=== PATIENT | female | born 1995 | race Caucasian/White ===

== ENCOUNTER → 2019-12-16 11:00 | Outpatient (BNVA) | payer OTHER, SELFPAY | PROVIDERS: Referring Provider Family Medicine; Visit Provider Family Medicine | DX: R50.9 Fever, unspecified (principal); J01.00 Acute maxillary sinusitis, unspecified; J02.9 Acute pharyngitis, unspecified; R68.89 Other general symptoms and signs; Z71.89 Other specified counseling | CPT/HCPCS: 87081; 87804; 87880 ==

== ENCOUNTER 2020-06-23 07:45 | Outpatient (CLI) | payer OTHER, MEDICAID, SELFPAY ==
--- NOTE | 2020-06-23 07:52 | US_ITS ---
WS: [id number] EARLY OBSTETRICAL ULTRASOUND (<14 WEEKS). HISTORY: SUPERVISION NORMAL COMPARISON: None available. Single intrauterine gestational sac is identified. Cardiac activity at 141 BPM. [place]-rump length aaliyah sures 0.9 cm which corresponds to a gestation of 6w6d. Normal-appearing yolk sac and amnion demonstra zach. Smallsubchorionic hemorrhage.Subchorionic hemorrhage measures 1.5 x 0.8 cm along the LEFT latera l gestational sac. No free fluid. Normal size ovaries with no mass. US/US OB <=14 wk fetus w transvag IMPRESSION: 1. Single intrauterine gestation of 6 weeks 6 days with an EDC of 02/10/2021. 2. Small subchorionic hemorrhage.
== END 2020-06-23 07:46 | disposition home or self-care (01) ==
LOC: RAD 07:46
PROVIDERS: Visit Provider Family Medicine
DX: Z3A.01 Less than 8 weeks gestation of pregnancy (principal); O46.91 Antepartum hemorrhage, unspecified, first trimester
CPT/HCPCS: 76801; 76817

== ENCOUNTER 2020-09-23 08:51 | Outpatient (CLI) | payer OTHER, MEDICAID, SELFPAY ==
--- NOTE | 2020-09-23 08:45 | US_ITS ---
WS: [id number] ULTRASOUND OB COMPLETE TECHNIQUE: Complete ultrasound. CLINICAL INFORMATION: ANATOMY/SUPERVISION NORMAL ,MULTIPAROUS COMPARISON: June 23, 2020 FINDINGS: Cervix measures 4.0 cm Single interuterine gestation is identified with cephalic presentation. Placenta is posterior. Placenta grade 0. Normal amniotic fluid volume. cardiac activity: 147 BPM. AGA: 20w1d CHRISTINA by ultrasound: 02/09/2021 Estimated weight: 316 g BDP: 4.7 cm = 20w2d HC: 18.0 cm = 20w3d AC: 14.2 cm = 19w4d FEMUR LENGTH: 3.2 cm = 20w0d Anatomic survey: Anatomic survey is normal. Normal stomach. Kidneys and bladder are normal. Normal 3 vessel cord. Norm al 3 vessel cord insertion. Normal 4 chamber heart. Normal spine. Intracranial contents are normal. N ormal posterior fossa and cisterna magna. US/US OB >= 14 weeks fetus [id number] IMPRESSION: 1. Single intrauterine with visualized cardiac activity. AGA 20w1d w ith CHRISTINA 02/09/2021. 2. Placenta is posterior No evidence of abruption or previa. 3. anatomic survey is normal. 4. Normal amniotic fluid volume.
== END 2020-09-23 08:52 | disposition home or self-care (01) ==
LOC: RAD 08:57
PROVIDERS: PCP Family Medicine; Visit Provider Family Medicine
DX: Z34.82 Encounter for supervision of other normal pregnancy, second trimester; Z3A.20 20 weeks gestation of pregnancy
CPT/HCPCS: 76805

== ENCOUNTER 2020-12-27 13:59 | Outpatient (CLI) | payer OTHER, BC, SELFPAY ==
--- NOTE | 2020-12-27 14:07 | USCV_ITS ---
Gricel Hernandez Age: 25 Gender: F : 1995 Exam Date: 12/27/2020 14:30 Ordering Phys: Vikram Hutchinson MD Technologist: Tavon Moreira Exam Location: [facility] [place]_ Indication: CALF PAIN HISTORY: Lower extremity pain. PROCEDURES: Venous duplex imaging was performed in bilateral lower extremities. The following venous structures were evaluated: common femoral vein, profunda vein, proximal portion of the greater saphenous vein, superficial femoral vein, and the popliteal vein. In addition, the posterior tibial and peroneal trunk were evaluated. FINDINGS: Normal 2-D Doppler and augmentation and compressibility throughout the lower extremity venous structures. Additional imaging through the proximal calf veins also reveals no thrombus. Limited evaluation of the greater saphenous vein is patent with no thrombus.. CONCLUSIONS No evidence of right lower extremity DVT. No evidence of left lower extremity DVT. Herminio Keenan MD (Electronically Signed) Final Date: 27 December 2020 14:42 S
== END 2020-12-27 14:00 | disposition home or self-care (01) ==
LOC: RAD 14:05
PROVIDERS: PCP Family Medicine; Visit Provider Family Medicine
DX: M79.661 Pain in right lower leg (principal); M79.662 Pain in left lower leg
CPT/HCPCS: 93970

== ENCOUNTER 2021-01-24 13:37 | Outpatient (CLI) | payer OTHER, BC, SELFPAY ==
--- NOTE | 2021-01-24 13:45 | US_ITS ---
WS: [id number] ULTRASOUND OB LIMITED TECHNIQUE: Limited ultrasound examination of the fetus. CLINICAL INFORMATION: SMALL FOR GESTATIONAL AGE COMPARISON: Ultrasound September 23, 2020 FINDINGS: Cervix measures 3.6 cm Single interuterine gestation. presentation is cephalic Placental location is posterior. Placenta grade: 1 heart rate 153 BPM. Normal MARTHA Normal profile. 7 lbs. 4 oz. (78th percentile) Gestational age 37 weeks 5 days. Estimated delivery February 09, 2021 Biophysical profile 8 out of 8. breathin movement: 2 tone: 2 Amniotic fluid: 2 US/US OB F/U w BPP wo NST IMPRESSION: Normal biophysical profile 8 out of 8
== END 2021-01-24 13:38 | disposition home or self-care (01) ==
LOC: RAD 13:41
PROVIDERS: PCP Family Medicine; Visit Provider Family Medicine
DX: Z34.80 Encounter for supervision of other normal pregnancy, unspecified trimester (principal); Z36.4 Encounter for antenatal screening for fetal growth retardation; Z3A.37 37 weeks gestation of pregnancy
CPT/HCPCS: 76816; 76819

== ENCOUNTER 2021-01-27 23:55 | Outpatient (CLI) | payer OTHER, BC, SELFPAY ==
[2021-01-27 23:55] VITALS: RESP 16; BMI 27.8
[2021-01-28 00:07] VITALS: BP 138/87; PULSE 113
[2021-01-28 00:21] VITALS: TEMP 36.8
[2021-01-28 00:36] VITALS: BP 123/71; PULSE 92
[2021-01-28 00:38] VITALS: BP 123/71; PULSE 92; RESP 16; TEMP 36.8
[2021-01-28 00:46] LABS: Nitrazine Paper, PH Negative
== END 2021-01-28 00:50 | disposition home or self-care (01) ==
LOC: OPOB 23:56 → OBGYN 23:56
PROVIDERS: PCP Family Medicine; Visit Provider Family Medicine
DX: O26.899 Other specified pregnancy related conditions, unspecified trimester (principal); Z3A.00 Weeks of gestation of pregnancy not specified; N89.8 Other specified noninflammatory disorders of vagina
CPT/HCPCS: 59025; 83986; 99211

== ENCOUNTER 2021-01-29 21:15 | Outpatient (CLI) | payer OTHER, BC, SELFPAY ==
[2021-01-29 21:21] VITALS: RESP 18
[2021-01-29 21:22] VITALS: BP 120/74; PULSE 96; TEMP 36.2
[2021-01-29 21:23] VITALS: BMI 27.4
[2021-01-29 21:57] LABS: Nitrazine Paper, PH Negative
== END 2021-01-29 21:50 | disposition home or self-care (01) ==
LOC: OPOB 21:15 → OBGYN 21:48
PROVIDERS: PCP Family Medicine; Visit Provider Family Medicine
DX: O26.899 Other specified pregnancy related conditions, unspecified trimester (principal); Z3A.00 Weeks of gestation of pregnancy not specified; N89.8 Other specified noninflammatory disorders of vagina
CPT/HCPCS: 83986; 99211

== ENCOUNTER 2021-02-07 06:00 | Inpatient (IN) | payer OTHER, BC, MEDICAID, SELFPAY ==
[2021-02-07] VITALS (22 sets, daily range): BP systolic 111–136; BP diastolic 67–88; PULSE 62–97; RESP 15–17; TEMP 36.1–36.4; BMI 27.4
[2021-02-07 06:39] LABS: Basophils % 0.4 %; Eosinophils # 0.4 10^3/uL (0.0-0.8); Eosinophils % 3.6 %; Hematocrit 36.6 % (37.0-47.0); Hemoglobin 11.7 g/dL (11.5-15.3); Lymphocytes # 2.9 10^3/uL (0.8-4.8); Lymphocytes % 30.2 %; Mean Corpuscular Hemoglobin 27.2 pg (28.0-34.0); Mean Corpuscular Volume 85.1 fL (81-99); Mean Platelet Volume 11.1 fL (7.4-10.4); Monocytes # 0.7 10^3/uL (0.2-0.9); Neutrophils # 5.59 10^3/uL (1.8-7.7); Nucleated Red Blood Cells % 0 %; Platelet Count 193 10^3/cmm (130-400); Red Cell Distribution Width 13.7 % (12.1-15.1); White Blood Count 9.7 10^3/uL (4.0-10.0)
[2021-02-07] MEDS: dextrose 5%-lactated ringers 1,000 ML 125 ML IV (07:14)
[2021-02-07] MEDS: oxytocin 30 UNIT/500 ML BAG 4 UNIT IV (07:15)
--- NOTE | 2021-02-07 08:08 | P.HP_ITS ---
Providers/Chief Complaint Admitting Physician: Vikram Hutchinson MD Primary Care Provider: Vikram Hutchinson MD Chief Complaint: induction of labor History of Present Illness Gricel Hernandez is a 25 year old at 39.3 weeks gestation by 6-week ultrasound inconsistent with LMP. Her is complicated by positive anti-M antibodies with titers of less than 1-1, first trimester subchorionic hemorrhage. The patient presents for an elective induction of labor. The patient is feeling well today. She denies any leakage of fluid, vaginal bleeding, chest pains, shortness of breath, fever, nausea, vomiting, diarrhea, constipation, dysuria. She feels well overall. Medications/Allergies Home Medications Medication Instructions Recorded Confirmed Last Taken Type + DHA 1 tab PO DAILY 01/28/21 02/07/21 02/06/21 17:00 History ferrous sulfate 325 mg PO DAILY 15 Days #30 tab 02/08/21 Unknown Rx hydrocodone-acetaminophen 1 tab PO Q6H PRN #10 tab 02/08/21 Unknown Rx ibuprofen 800 mg PO TID #30 tab 02/08/21 Unknown Rx Allergies Allergy/AdvReac Type Severity Reaction Status Date / Time No Known Allergies Allergy Verified 02/07/21 15:04 PFSH Acute PFSH: Family History (Updated 02/18/21 @ 21:49 by Vikram Hutchinson MD) Mother Thyroid disorder Social History Smoking and tobacco status: never smoked Alcohol intake: never Female Reproductive History: : 2 Vitals/I&O/Wt Last Vital Signs Pulse 88 02/07/21 06:12 Resp 15 02/07/21 06:28 BP 125/85 02/07/21 06:12 Weight last 48 hrs Weight 186 lb Physical Exam Narrative: EXAM NARRATIVE: General: Alert and oriented x3 Eyes: Pupils equal round and reactive to light and accommodation Mouth: Mucous membranes moist, pharynx non-erythematous Cardiac: Regular rate and rhythm without murmurs Lungs: Clear to auscultation bilaterally without wheezes, crackles or rhonchi Abdomen: Soft, non-tender, fundus consistent with gestational age Extremities: Trace edema in the bilateral lower extremities Data : 02/07/21 22:00 A&P Assessment and plan (1) Intrauterine : Status: Resolved Additional A&P Information The patient is doing well at this time. We will continue with induction of labor starting with IV Pitocin as the patient is 2 cm dilated and 70% effaced upon presentation. There was an initial late deceleration that resolved on its own. Currently heart tones are in the mid 140s with moderate variability and good accelerations with a category 1 tracing. The patient's contractions are currently not graphing. She does not seem to be uncomfortable with them yet. The patient is GBS negative. She is Covid negative. Proceed with routine induction at this time. All questions were answered. The patient and her significant other are in agreement with the current plan of care. Attestations Medical Necessity Statement*: The patient will be here for greater than 2 midnights due to routine intrapartum and management of labor and delivery. Coding Level of Care Code Acute Vacuum Metalizer Operator for Nia Whitfield Diagnoses Intrauterine Z34.90
[2021-02-07] MEDS: lactated ringers 1,000 ML 999 ML IV (08:44)
[2021-02-07] MEDS: butorphanol 2 mg/mL SDV 1 mL 1 MG IVP (08:44)
--- NOTE | 2021-02-07 09:36 | P.PCNOB_ITS ---
Delivery Note: Date of delivery: February 07, 2021 Pre-delivery diagnoses: 1. Intrauterine status post spontaneous vaginal delivery at 39.3 weeks gestation 2. Positive anti-M antibodies 3. First trimester subchorionic hemorrhage Post-delivery diagnoses: 1. Intrauterine at 39.3 weeks gestation 2. Positive anti-M antibodies 3. First trimester subchorionic hemorrhage 4. Delivery of healthy female weighing 7 pounds 4 ounces with Apgars of 9 and 10 Procedure: Spontaneous vaginal delivery Op report anesthesia: Other (IV Stadol) Delivering Physician: Vikram Hutchinson MD Estimated blood loss (mL): 100 Pre-Delivery Course: The patient presented to labor and delivery for a planned elective induction of labor. The patient was already dilated to 2 cm upon admission. She was started on IV Pitocin and began sameer well. The patient made rapid change and was complete by 9:06 AM on 02/07/2021. Delivery: Patient began pushing at 9:06 AM on 02/07/2021. She pushed well and the infant delivered in the OA position at 9:18 AM on 02/07/2021. There was no nuchal cord. The left shoulder was anterior shoulder and it delivered with ease. The rest the delivered without complication. The mouth and nose were bulb suctioned by myself and the was placed on the mother's chest where the nurses were waiting to care for her. The cord was clamped by myself and cut by the infant's father. Cord blood was obtained. The cord was then drained of blood and uterine massage was done. The placenta delivered without complication and was noted to be intact with a central umbilical insertion site. The cervix was inspected and no lacerations were noted. The vaginal wall was inspected and no lacerations were noted. Currently both the and mother are doing very well. A&P Assessment and plan (1) Intrauterine : Status: Resolved Coding Level of Care Code Acute Food Sanitarian for Chg Fwd Diagnoses Intrauterine Z34.90
[2021-02-07] MEDS: acetaminophen 325 mg Tablet 650 MG PO (13:29)
[2021-02-07] MEDS: ibuprofen 800 mg tablet PO ×2 (15:07→20:52)
[2021-02-07] MEDS: benzocaine-menthol 78 gm Canister 1 SPRAY TOPICAL (17:20)
[2021-02-07] MEDS: docusate sodium 100 mg Capsule PO (17:20)
[2021-02-07] MEDS: lanolin oint 7 gm 1 APPLIC TOPICAL (17:20)
[2021-02-08] MEDS: HYDROcodone-acetaminophen 5-325 mg Tablet PO (01:21)
[2021-02-08 01:38] LABS: Hematocrit 38.1 % (37.0-47.0); Hemoglobin 11.8 g/dL (11.5-15.3); Mean Corpuscular Hemoglobin 26.3 pg (28.0-34.0); Mean Corpuscular Volume 84.9 fL (81-99); Mean Platelet Volume 11.9 fL (7.4-10.4); Platelet Count 200 10^3/cmm (130-400); Red Blood Count 4.49 10^6/uL (4.1-5.3); Red Cell Distribution Width 13.7 % (12.1-15.1)
[2021-02-08 03:50] VITALS: BP 100/62; PULSE 78
--- NOTE | 2021-02-08 08:40 | P.DS_ITS ---
Discharge Providers Date of Admission: 02/07/21 06:00 Date of Discharge: February 08, 2021 Attending Provider at Admission: Vikram Hutchinson MD Attending Provider at Discharge: Vikram Hutchinson MD Primary Care Provider: Vikram Hutchinson MD Diagnoses at Discharge Discharge Diagnosis (1) Intrauterine : Status: Resolved Reason for Visit Reason for Visit: induction of labor Hospital Course Hospital Course The patient presented to labor and delivery for a planned elective induction of labor. The patient was already dilated to 2 cm upon admission. She was started on IV Pitocin and began sameer well. The patient made rapid change and was complete by 9:06 AM on 02/07/2021. Delivery: The patient began pushing at 9:06 AM on 02/07/2021. She pushed well and the infant delivered in the OA position at 9:18 AM on 02/07/2021. There was no nuchal cord. The left shoulder was anterior shoulder and it delivered with ease. The rest the infant delivered without complication. The mouth and nose were bulb suctioned by myself and the infant was placed on the mother's chest where the nurses were waiting to care for her. The cord was clamped by myself and cut by the 's father. Cord blood was obtained. The cord was then drained of blood and uterine massage was done. The placenta delivered without complication and was noted to be intact with a central umbilical insertion site. The cervix was inspected and no lacerations were noted. The vaginal wall was inspected and no lacerations were noted. Currently both the and mother are doing very well. : The patient is doing very well without complications. Her bleeding is decreasing well. She is ambulating, voiding, passing gas and tolerating food by mouth. Her pain is well controlled. Routine discharge instructions were discussed. All questions were answered. The patient is in agreement with discharge home at this time. Physical Exam Narrative: EXAM NARRATIVE: General: Alert and oriented x3 Cardiac: Regular rate and rhythm without murmurs Lungs: Clear to auscultation bilaterally without wheezes, crackles or rhonchi Abdomen: Soft, non-tender, fundus is firm and midline and 2 cm below the umbilicus. Extremities: Trace edema in the bilateral lower extremities Discharge Data Data Completed and Pending: Labs from last 24 hours 02/07/21 22:00 WBC 13.0 H RBC 4.49 Hgb 11.8 Hct 38.1 MCV 84.9 MCH 26.3 L MCHC 31.0 RDW 13.7 Plt Count 200 MPV 11.9 H Vitals: Last Vital Signs Temp 97.5 F L 02/07/21 19:36 Pulse 78 02/08/21 03:50 Resp 16 02/07/21 19:36 BP 100/62 02/08/21 03:50 Discharge Plan Discharge Patient Disposition: Home Condition: Good Prescriptions: New ibuprofen 800 mg Tablet 800 mg PO TID Qty: 30 RF: 0 hydrocodone-acetaminophen 5-325 mg Tablet 1 tab PO Q6H PRN (Reason: Moderate To Severe Pain) Qty: 10 RF: 0 ferrous sulfate 325 mg (65 mg iron) tablet 325 mg PO DAILY 15 Days Qty: 30 RF: 0 Continued + DHA tablet 1 tab PO DAILY RF: 0 Discharge Orders: Discharge Order (Routine); Ordered 02/08/21 Ordered By: Vikram Hutchinson Referrals: Vikram Hutchinson MD [Primary Care Provider] - 03/22/21 10:00 am (Your 6 week post appointment is scheduled with Dr. Hutchinson for 03/22/21 at 10:00) Discharge Diet: Advance as tolerated Discharge Activity: Resume usual activity Patient Instructions: Vitamins (By mouth), Pre-eclampsia and Eclampsia (DC), Bleeding (DC), OB Discharge Report, OB Food/Drug Interaction Guide, Opioid Safety, OB Your Care - [facility], OB Proud Parent Packet Activity Restrictions/Additional Instructions: Nothing per vagina for 6 weeks. If you have any concern for complications, please call [facility] for a sooner appointment. Discharge Attestations Time Spent in Discharge Care*: greater than 30 min Quality Metrics Clinical Quality Measures During this hospital stay, did patient experience: None Coding Level of Care Code Acute Chg FW DC note Diagnoses Intrauterine Z34.90
[2021-02-08] MEDS: ibuprofen 800 mg tablet PO (09:26)
[2021-02-08] MEDS: docusate sodium 100 mg Capsule PO (09:26)
[2021-02-08] MEDS: prenatal vitamin Capsule 1 CAP PO (09:26)
[2021-02-08 09:55] VITALS: RESP 16; TEMP 36.3
[2021-02-08 09:56] VITALS: BP 124/80; PULSE 88
[2021-02-08 10:40] VITALS: BP 124/80; PULSE 88
== END 2021-02-08 10:40 | disposition home or self-care (01) | DRG 806 ==
PROVIDERS: Admitting Provider Family Medicine; PCP Family Medicine; Visit Provider Family Medicine
DX: O76 Abnormality in fetal heart rate and rhythm complicating labor and delivery (principal); O99.12 Other diseases of the blood and blood-forming organs and certain disorders involving the immune mechanism complicating childbirth; Z37.0 Single live birth; Z3A.39 39 weeks gestation of pregnancy
CPT/HCPCS: 36415; 59025; 59409; 85025; 85027; 96374; 98960; J0595

== ENCOUNTER → 2022-03-07 11:20 | Outpatient (BNVA) | payer OTHER, BC, SELFPAY | PROVIDERS: PCP Family Medicine | DX: Z00.00 Encounter for general adult medical examination without abnormal findings (principal); R10.9 Unspecified abdominal pain; R53.81 Other malaise | CPT/HCPCS: 80053; 81002; 84439; 84443; 85025; 86140 ==

== ENCOUNTER → 2022-03-07 12:09 | Outpatient (BNVA) | payer OTHER, BC, SELFPAY | PROVIDERS: PCP Family Medicine; Visit Provider Family Medicine | DX: Z00.00 Encounter for general adult medical examination without abnormal findings (principal); R10.9 Unspecified abdominal pain; R53.81 Other malaise | CPT/HCPCS: 80053; 81000; 84439; 84443; 85025; 86140; 87077; 87086; 87184 ==

== ENCOUNTER 2022-11-02 | Outpatient (CLI) | payer OTHER, BC, SELFPAY | END 2022-11-02 23:00 | disposition home or self-care (01) | LOC: LAB 02-23 13:28 | PROVIDERS: PCP Family Medicine; Visit Provider Family Medicine | DX: O23.40 Unspecified infection of urinary tract in pregnancy, unspecified trimester (principal); Z3A.00 Weeks of gestation of pregnancy not specified; R30.0 Dysuria | CPT/HCPCS: 80307; 81000; 84144; 84443; 84702; 85025; 86592; 86762; 86803; 86850; 86870; 86900; 87077; 87086; 87184; 87340; 87491; 87591; 87624; 87806 ==

== ENCOUNTER 2022-12-14 12:32 | Outpatient (CLI) | payer OTHER, BC, SELFPAY ==
--- NOTE | 2022-12-14 12:45 | US_ITS ---
WS: [id number] EARLY OBSTETRICAL ULTRASOUND (<14 WEEKS). HISTORY: Obstetrical dating. COMPARISON: None available. Single intrauterine gestational sac is identified. Cardiac activity at 141 BPM. [place]-rump length aaliyah sures 7.8 cm which corresponds to a gestation of 13w6d. Normal-appearing yolk sac and amnion demonstr ated. No subchorionic hemorrhage. No free fluid. Normal size ovaries with no mass. Cervix is closed measuring 4.5 cm. US/US OB <= 14 weeks fetus [id number] IMPRESSION: 1. Single intrauterine gestation of 13 weeks 6 days with an EDC of 06/15/2023. 2. Normal cardiac activity.
== END 2022-12-14 12:33 | disposition home or self-care (01) ==
PROVIDERS: PCP Family Medicine; Visit Provider Family Medicine
DX: Z34.81 Encounter for supervision of other normal pregnancy, first trimester (principal); Z36.87 Encounter for antenatal screening for uncertain dates; Z3A.13 13 weeks gestation of pregnancy
CPT/HCPCS: 76801; 80307; 81000; 81025; 84144; 84443; 84702; 85025; 86592; 86762; 86803; 86850; 86870; 86900; 87077; 87086; 87184; 87340; 87491; 87591; 87624; 87806

== ENCOUNTER → 2022-12-22 12:20 | Outpatient (BNVA) | payer OTHER, BC, SELFPAY | PROVIDERS: PCP Family Medicine; Visit Provider Family Medicine | DX: Z34.90 Encounter for supervision of normal pregnancy, unspecified, unspecified trimester (principal); R30.0 Dysuria | CPT/HCPCS: 80503 ==

== ENCOUNTER → 2022-12-28 11:06 | Outpatient (BNVA) | payer OTHER, BC, SELFPAY | PROVIDERS: PCP Family Medicine; Visit Provider Family Medicine | DX: Z34.80 Encounter for supervision of other normal pregnancy, unspecified trimester (principal) | CPT/HCPCS: 80048; 81511; 83735; 86886; 87086 ==

== ENCOUNTER → 2023-01-29 13:15 | Outpatient (BNVA) | payer OTHER, BC, SELFPAY | PROVIDERS: PCP Family Medicine; Visit Provider Family Medicine | DX: Z34.80 Encounter for supervision of other normal pregnancy, unspecified trimester (principal); E83.42 Hypomagnesemia | CPT/HCPCS: 83735; 86886 ==

== ENCOUNTER 2023-01-30 12:35 | Outpatient (CLI) | payer OTHER, BC, SELFPAY ==
--- NOTE | 2023-01-30 12:30 | US_ITS ---
WS: [id number] ULTRASOUND OB COMPLETE TECHNIQUE: Complete ultrasound. CLINICAL INFORMATION: Anatomy US COMPARISON: Ultrasound December 14, 2022 FINDINGS: Cervix long and closed. Cervix measures 4.3 cm Single interuterine gestation is identified with variable presentation. Placenta is posterior. Placenta grade 0. Normal amniotic fluid volume. cardiac activity: 153 BPM. AGA: 20w1d CHRISTINA by ultrasound: 06/18/2023 Estimated weight: 326 g; 0 lbs. 12 oz. BDP: 4.7 cm = 20w2d HC: 17.4 cm = 20w0d AC: 14.7 cm = 20w0d FEMUR LENGTH: 3.2 cm = 20w0d Anatomic survey: Cisterna magna and cerebellum not well visualized due to position. Limited vis ualization of the profile, nose and lips due to positioning. Recommend 2-3 week interval follow -up for additional attempt. Anatomic survey is otherwise normal. Normal stomach. Kidneys and bladder are normal. Normal 3 vessel cord. Normal 3 vessel cord insertion. Normal 4 chamber heart. Normal spine. Normal intracranial ventr icles. US/US OB >= 14 weeks fetus [id number] IMPRESSION: 1. Single intrauterine with visualized cardiac activity. AGA 20w1d w ith CHRISTINA 06/18/2023. 2. Placenta is posterior. No evidence of abruption or previa. 3. Limited visualization of the posterior fossa cerebellum and cisterna magna loosening. Limited visualization of the profile due to positioning. Recom mend 2-3 week interval follow-up for additional attempt. 4. anatomic survey is otherwise normal. 5. Normal amniotic fluid volume.
== END 2023-01-30 12:36 | disposition home or self-care (01) ==
LOC: RAD 12:35
PROVIDERS: PCP Family Medicine; Visit Provider Family Medicine
DX: Z34.80 Encounter for supervision of other normal pregnancy, unspecified trimester (principal); Z36.89 Encounter for other specified antenatal screening; Z3A.14 14 weeks gestation of pregnancy
CPT/HCPCS: 76805

== ENCOUNTER 2023-02-20 08:36 | Outpatient (CLI) | payer OTHER, BC, SELFPAY ==
--- NOTE | 2023-02-20 08:45 | US_ITS ---
WS: [id number] ULTRASOUND OB FOCUSED HISTORY: Follow up on anatomy US, reevaluation posterior fossa, cisterna magna and profile. COMPARISON: 01/30/2023 Single intrauterine gestation is present in cephalic position. Cervix is closed at 5.0 cm. Normal duy unt of amniotic fluid. heart rate at 153 BPM. Additional imaging through the head only included the posterior fossa. The remaining intracrani al structures were not imaged. Still very poor evaluation of the cerebellum and posterior fossa. No a bnormality is identified. Normal upper lip. US/US OB limited [id number] IMPRESSION: 1. Limited but unremarkable imaging of the posterior fossa. 2. Normal upper lip.
== END 2023-02-20 08:37 | disposition home or self-care (01) ==
LOC: RAD 08:41
PROVIDERS: PCP Family Medicine; Visit Provider Family Medicine
DX: Z34.80 Encounter for supervision of other normal pregnancy, unspecified trimester (principal)
CPT/HCPCS: 76815

== ENCOUNTER → 2023-02-28 15:09 | Outpatient (BNVA) | payer OTHER, BC, SELFPAY | PROVIDERS: PCP Family Medicine; Visit Provider Family Medicine | DX: O36.1930 Maternal care for other isoimmunization, third trimester, not applicable or unspecified (principal) | CPT/HCPCS: 82950; 86886 ==

== ENCOUNTER 2023-04-27 15:15 | Outpatient (CLI) | payer OTHER, BC, SELFPAY ==
[2023-04-27 15:35] VITALS: BP 119/82; PULSE 106
[2023-04-27 15:50] VITALS: BP 126/84; PULSE 92
[2023-04-27 16:05] VITALS: BP 118/74; PULSE 100
[2023-04-27 16:12] LABS: Actim Prom Negative
[2023-04-27 16:20] VITALS: BP 112/66; PULSE 85
== END 2023-04-27 16:23 | disposition home or self-care (01) ==
LOC: OPOB 15:18 → OBGYN 15:20
PROVIDERS: PCP Family Medicine; Visit Provider Family Medicine
DX: O26.899 Other specified pregnancy related conditions, unspecified trimester (principal); N89.8 Other specified noninflammatory disorders of vagina; Z3A.00 Weeks of gestation of pregnancy not specified
CPT/HCPCS: 36415; 59025; 83735; 84112; 85025; 86850; 86870; 86886; 99211

== ENCOUNTER → 2023-05-25 10:44 | Outpatient (BNVA) | payer OTHER, BC, SELFPAY | PROVIDERS: PCP Family Medicine; Visit Provider Family Medicine | DX: Z34.90 Encounter for supervision of normal pregnancy, unspecified, unspecified trimester (principal) | CPT/HCPCS: 87081 ==

== ENCOUNTER 2023-06-06 04:26 | Inpatient (IN) | payer OTHER, BC, MEDICAID, SELFPAY ==
[2023-06-06] VITALS (61 sets, daily range): BP systolic 100–138; BP diastolic 55–92; PULSE 63–106; RESP 16–18; TEMP 35.9–36.8; O2SAT 97–98; BMI 28.6
[2023-06-06 02:21] LABS: Nitrazine Paper, PH Negative
[2023-06-06 02:27] LABS: Actim Prom Negative
[2023-06-06 04:23] LABS: Nitrazine Paper, PH Positive
[2023-06-06 05:05] LABS: Basophils # 0.1 10^3/uL (0.0-0.1); Basophils % 0.6 %; Eosinophils # 0.2 10^3/uL (0.0-0.8); Eosinophils % 2.3 %; Hematocrit 33.3 % (37.0-47.0); Hemoglobin 10.6 g/dL (11.5-15.3); Lymphocytes # 2.5 10^3/uL (0.8-4.8); Lymphocytes % 26.1 %; Mean Corpuscular HGB Conc 31.8 g/dL (30.0-36.0); Mean Corpuscular Hemoglobin 26.8 pg (28.0-34.0); Mean Corpuscular Volume 84.3 fl (81-99); Mean Platelet Volume 11.5 fL (7.4-10.4); Monocytes # 0.6 10^3/uL (0.2-0.9); Monocytes % 6.1 %; Neutrophils # 6.25 10^3/uL (1.8-7.7); Neutrophils % 64.2 %; Nucleated Red Blood Cells % 0 %; Platelet Count 177 10^3/cmm (130-400); Red Blood Count 3.95 10^6/uL (4.1-5.3); Red Cell Distribution Width 13.7 % (12.1-15.1); White Blood Count 9.7 10^3/uL (4.0-10.0)
[2023-06-06] MEDS: fentaNYL 50 mcg/mL INJ 2mL IVP ×4 (06:11→12:57)
--- NOTE | 2023-06-06 07:05 | P.HP_ITS ---
Providers/Chief Complaint Admitting Physician: Vikram Hutchinson MD Primary Care Provider: Vikram Hutchinson MD Chief Complaint: abdominal pain, leaking History of Present Illness Gricel Hernandez is a 27 year old @ 38.1 weeks by LMP consistent with 13 wk US. Preg c/b anti-M antibodies, h/o quick induction, maternal grandmother with with spina bifida. The patient presented to labor and delivery triage for contractions. She began having contractions on the evening of 06/05/2023. They continue to get stronger and she presented to labor and delivery at approximately 2:15 AM on 06/06/2023. The patient was noted to be 2 cm upon arrival. After 1 hour she was 3 cm dil ated. Shortly after arrival she also noted leakage of fluid and nitrazine was positive. For this reason the patient was admitted. The patient denies any chest pains, shortness of breath, nausea, vomiting, diarrhea, constipation, vaginal bleeding, fever. Medications/Allergies Home Medications Medication Instructions Recorded Confirmed Last Taken Type prenat.vits,[place],[id number] 1 tab PO DAILY 05/11/23 06/06/23 06/05/23 History Allergies Allergy/AdvReac Type Severity Reaction Status Date / Time No Known Allergies Allergy Verified 06/19/22 09:52 PFSH Acute PFSH: Family History Mother Thyroid disorder Social History Smoking and tobacco status: never smoked Alcohol intake: never Substance/Drug Use: never Female Reproductive History: : 3 Spontaneous abortions: No Vitals/I&O/Wt Last Vital Signs Temp 97.0 F L 06/06/23 02:48 Pulse 71 06/06/23 06:56 Resp 16 06/06/23 06:11 BP 130/74 06/06/23 06:56 O2 Del Method Room Air 06/06/23 05:23 Weight last 48 hrs Weight 194 lb Physical Exam Narrative: General: Alert and oriented x3 Eyes: Pupils equal round and reactive to light and accommodation Mouth: Mucous membranes moist, pharynx non-erythematous Cardiac: Regular rate and rhythm without murmurs Lungs: Clear to auscultation bilaterally without wheezes, crackles or rhonchi Abdomen: Soft, non-tender, fundus consistent with gestational age Extremities: Trace edema in the bilateral lower extremities Data 06/06/23 04:22 A&P Assessment and plan (1) Supervision of normal intrauterine in multigravida: The patient is doing well at this time. She is sameer on her own every 2 to 3 minutes. heart tones are in the mid 120s with moderate ability good accelerations with a category 1 tracing. The patient at her most recent check was 5 cm dilated. She is GBS negative. We will proceed with routine in trapartum management. All questions were answered. The patient is in agreement with the current plan of care. Attestations Medical Necessity Statement*: The patient will be here for greater than 2 midnights due to routine intrapartum and management of labor and delivery. Coding Level of Care Code Acute Code for Chg Fwd Diagnoses Supervision of normal intrauterine in multigravida Z34.80
[2023-06-06] MEDS: dextrose 5%-lactated ringers 1,000 ML 125 ML IV (10:26)
[2023-06-06] MEDS: oxytocin 30 UNIT/500 ML BAG IV (10:29)
[2023-06-06] MEDS: ondansetron 2 mg/ML SDV 2 mL 4 MG IVP (13:23)
--- NOTE | 2023-06-06 16:40 | PM.DELIVERY ---
Delivery Note: Date of delivery: June 06, 2023 Pre-delivery diagnoses: 1. Intrauterine at 38.1 weeks gestation 2. Anti-M antibodies 3. Spontaneous labor Post-delivery diagnoses: 1. Intrauterine status post spontaneous vaginal delivery at 38.1 weeks gestation 2. Anti-M antibodies 3. Spontaneous labor 4. Delivery of healthy infant female weighing 6 pounds 7 ounces with Apgars of 8 and 9 Procedure: Spontaneous vaginal delivery Delivering Physician: Vikram Hutchinson MD Estimated blood loss (mL): 50 Findings: 1. Healthy female weighing 6 pounds 7 ounces with Apgars of 8 and 9 2. Delivery of intact normal-appearing placenta with central umbilical cord insertion site. Pre-Delivery Course: Gricel Hernandez is a 27 year old G3 now P3 status post spontaneous vaginal delivery @ 38.1 weeks by LMP consistent with 13 wk US. Preg c/b anti-M antibodies, h/o quick induction, maternal grandmother with infant with spina bifida. The patient presented to labor and delivery triage for contractions.? She began having contractions on the evening of 06/05/2023.? They continue to get stronger and she presented to labor and delivery at approximately 2:15 AM on 06/06/2023.? The patient was noted to be 2 cm upon arrival.? After 1 hour she was 3 cm dilated.? Shortly after arrival she also noted leakage of fluid and nitrazine was positive.? For this reason the patient was admitted. The patient made change up to 6 cm on her own, however then stalled out. IV Pitocin was added to augment labor. The baby's head was in the OP position and multiple position changes were done to try and get the to turn. Eventually the infant's head did turn and good pressure was placed on the cervix. A forebag was noted at that time and AROM was performed at 1540 on 06/06/2023. Clear fluid was noted. The patient then dilated rapidly from 6 cm to complete at 1608 on 06/06/2023. Delivery: The patient began pushing at 1611 on 06/06/2023. The patient pushed well and the delivered in the OA position at 1613. There was no nuchal cord. The left shoulder was anterior shoulder and it delivered with ease. The 's right arm also delivered at the same time as the left shoulder. The 's mouth and nose were bulb suctioned by myself and the was crying shortly after delivery. The was placed on the mother's chest where the nurses were waiting to care for her. The cord was clamped by myself after approximately 1 minute and cut by the 's father. Cord blood was obtained. The cord was then drained of blood. Traction was placed on umbilical cord and uterine massage was carried out. The placenta delivered without complication at 1618. The placenta was noted to be intact with a central umbilical cord insertion site. A three-vessel cord was noted. The uterus was massaged and there was very little bleeding. The cervix was inspected and no lacerations were noted. The vaginal wall was inspected and there were no lacerations. EBL was 50 mL. Currently both the mother and are doing well. History History History 3 Term 3 0 Miscarriages/Ectopic 0 Living Children 3 Past Pregnancies Del. Date GA/Weeks Outcome Route Wt Inf Gender Labor Lgth Comp. Anesthesia Location 10/02/18 41 live - full term Vaginal 6 lb 8 oz Male 12 [facility] 02/07/21 39 live - full term Vaginal 7 lb 4 oz Female 2 hours Precipitous Delivery [facility], [place], operated by [facility] 06/06/23 38 live - full term Vaginal 6 lb 7 oz Female [address] [place] [address] Delivery Date: 10/02/18 Last Updated by: Vikram Hutchinson MD Induced, no tears Delivery Date: 02/07/21 Last Updated by: Vikram Hutchinson MD Quick delivery but I was present for delivery. 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
[2023-06-06] MEDS: acetaminophen 325 mg Tablet 650 MG PO (18:07)
[2023-06-06] MEDS: benzocaine-menthol 78 gm Canister 1 SPRAY TOPICAL (18:07)
[2023-06-06] MEDS: docusate sodium 100 mg Capsule PO (18:07)
[2023-06-06] MEDS: lanolin oint 7 gm 1 APPLIC TOPICAL (18:08)
[2023-06-06] MEDS: ibuprofen 800 mg tablet PO (20:26)
[2023-06-06] MEDS: HYDROcodone-acetaminophen 5-325 mg Tablet PO (21:42)
[2023-06-07 00:29] VITALS: BP 111/70; PULSE 69
[2023-06-07 04:00] VITALS: BP 144/88; PULSE 59; RESP 18; TEMP 36.6; O2SAT 98
[2023-06-07 04:23] LABS: Hematocrit 32.4 % (37.0-47.0); Hemoglobin 10.1 g/dL (11.5-15.3); Mean Corpuscular HGB Conc 31.2 g/dL (30.0-36.0); Mean Corpuscular Hemoglobin 26.7 pg (28.0-34.0); Mean Corpuscular Volume 85.7 fl (81-99); Mean Platelet Volume 11.8 fL (7.4-10.4); Platelet Count 153 10^3/cmm (130-400); Red Blood Count 3.78 10^6/uL (4.1-5.3); Red Cell Distribution Width 13.9 % (12.1-15.1); White Blood Count 11.1 10^3/uL (4.0-10.0)
[2023-06-07 11:00] VITALS: BP 125/84; PULSE 72; RESP 16; O2SAT 96
[2023-06-07] MEDS: acetaminophen 325 mg Tablet 650 MG PO (11:56)
[2023-06-07] MEDS: ibuprofen 800 mg tablet PO (16:56)
--- NOTE | 2023-06-07 17:20 | PM.DCS ---
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 Intrauterine status post spontaneous vaginal delivery at 38.1 weeks gestation 2.? Anti-M antibodies 3.? Spontaneous labor 4.? Delivery of healthy infant female weighing 6 pounds 7 ounces with Apgars of 8 and 9 Reason for Visit Reason for Visit: abdominal pain, leaking Brief History: Gricel Hernandez is a 27 year old G3? now P3 status post spontaneous vaginal delivery @ 38.1 weeks by LMP consistent with 13 wk US. Preg c/b anti-M antibodies, h/o quick induction, maternal grandmother with with spina bifida. The patient presented to labor and delivery triage for contractions.? She began having contractions on the evening of 06/05/2023.? They continue to get stronger and she presented to labor and delivery at approximately 2:15 AM on 06/06/2023.? The patient was noted to be 2 cm upon arrival.? After 1 hour she was 3 cm dilated.? Shortly after arrival she also noted leakage of fluid and nitrazine was positive.? For this reason the patient was admitted. Hospital Course Hospital Course The patient made change up to 6 cm on her own, however then stalled out.? IV Pitocin was added to augment labor.? The baby's head was in the OP position and multiple position changes were done to try and get the to turn.? Eventually the 's head did turn and good pressure was placed on the cervix.? A forebag was noted at that time and AROM was performed at 1540 on 06/06/2023.? Clear fluid was noted.? The patient then dilated rapidly from 6 cm to complete at 1608 on 06/06/2023. The patient began pushing at 1611 on 06/06/2023.? The patient pushed well and the delivered in the OA position at 1613.? There was no nuchal cord.? The left shoulder was anterior shoulder and it delivered with ease.? The 's right arm also delivered at the same time as the left shoulder.? The infant's mouth and nose were bulb suctioned by myself and the infant was crying shortly after delivery.? The was placed on the mother's chest where the nurses were waiting to care for her.? The cord was clamped by myself after approximately 1 minute and cut by the infant's father.? Cord blood was obtained.? The cord was then drained of blood.? Traction was placed on umbilical cord and uterine massage was carried out.? The placenta delivered without complication at 1618.? The placenta was noted to be intact with a central umbilical cord insertion site.? A three-vessel cord was noted.? The uterus was massaged and there was very little bleeding.? The cervix was inspected and no lacerations were noted.? The vaginal wall was inspected and there were no lacerations.? EBL was 50 mL. , the patient is doing well. She is having no signs of complications. Routine discharge instructions were discussed. She will plan to follow up with me at 6 weeks or sooner if needed. Discharge Data Studies Completed and Pending Laboratory Results WBC 11.1 10^3/uL (4.0-10.0) H 06/07/23 04:18 RBC 3.78 10^6/uL (4.1-5.3) L 06/07/23 04:18 Hgb 10.1 g/dL (11.5-15.3) L 06/07/23 04:18 Hct 32.4 % (37.0-47.0) L 06/07/23 04:18 MCV 85.7 fl (81-99) 06/07/23 04:18 MCH 26.7 pg (28.0-34.0) L 06/07/23 04:18 MCHC 31.2 g/dL (30.0-36.0) 06/07/23 04:18 RDW 13.9 % (12.1-15.1) 06/07/23 04:18 Plt Count 153 10^3/cmm (130-400) 06/07/23 04:18 MPV 11.8 fL (7.4-10.4) H 06/07/23 04:18 Neut % (Auto) 64.2 % 06/06/23 04:22 Lymph % (Auto) 26.1 % 06/06/23 04:22 [place] % (Auto) 6.1 % 06/06/23 04:22 Eos % (Auto) 2.3 % 06/06/23 04:22 Baso % (Auto) 0.6 % 06/06/23 04:22 Neut # (Auto) 6.25 10^3/uL (1.8-7.7) 06/06/23 04:22 Lymph # (Auto) 2.5 10^3/uL (0.8-4.8) 06/06/23 04:22 [place] # (Auto) 0.6 10^3/uL (0.2-0.9) 06/06/23 04:22 Eos # (Auto) 0.2 10^3/uL (0.0-0.8) 06/06/23 04:22 Baso # (Auto) 0.1 10^3/uL (0.0-0.1) 06/06/23 04:22 Nucleated RBC % (auto) 0 % 06/06/23 04:22 Nucleated RBCs # 0.0 /100WBC 06/06/23 04:22 Insulin-like GF I Negative 06/06/23 02:10 Fluid pH (paper) Positive H 06/06/23 04:01 Vitals Last Vital Signs Temp 97.8 F 06/07/23 04:00 Pulse 72 06/07/23 11:00 Resp 16 06/07/23 11:00 BP 125/84 06/07/23 11:00 Pulse Ox 96 06/07/23 11:00 O2 Del Method Room Air 06/07/23 11:00 Discharge Plan Discharge Patient Disposition: Home Condition: Good Prescriptions: New ferrous sulfate 325 mg (65 mg iron) tablet 325 mg PO BID Qty: 30 0RF Continued prenat.vits,augustin,glg-lwsk-atldp Tablet 1 tab PO DAILY No Action ibuprofen 800 mg tablet 800 mg PO TID Qty: 30 0RF Discharge Orders: Discharge Order (Routine); Ordered 06/07/23 Ordered By: Vikram Hutchinson Referrals: Vikram Hutchinson MD [Primary Care Provider] - 07/19/23 9:00 am (Patient to see Dr. Hutchinson for six week checkup on 07-19-23 at 9AM) Discharge Diet: Regular Discharge Activity: Resume usual activity and Limit activity as instructed Patient Instructions: Depression (DC), Preeclampsia and Eclampsia After Delivery (GEN), OB Discharge Report, OB Food/Drug Interaction Guide, Opioid Safety, OB [facility] - [facility], OB Vaginal Deliveries, Abnormal Bleeding Activity Restrictions/Additional Instructions: Nothing per vagina for 6 weeks. I would recommend showers instead of baths for the first 6 weeks. 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
[2023-06-07 17:50] VITALS: BP 125/85; PULSE 72; RESP 14; O2SAT 98
== END 2023-06-07 18:10 | disposition home or self-care (01) | DRG 807 ==
LOC: OPOB 04:26 → OBGYN 04:26
PROVIDERS: Admitting Provider Family Medicine; PCP Family Medicine; Visit Provider Family Medicine
DX: O36.1930 Maternal care for other isoimmunization, third trimester, not applicable or unspecified (principal); Z37.0 Single live birth; Z3A.38 38 weeks gestation of pregnancy
CPT/HCPCS: 36415; 59025; 59409; 83986; 84112; 85025; 85027; 96374; 96376; 99211; J2405; J2590; J3010; J7121

== ENCOUNTER → 2024-05-04 13:31 | Outpatient (BNVA) | payer BC, MEDICAID, SELFPAY | PROVIDERS: PCP Family Medicine; Visit Provider Nurse Practitioner | DX: R30.0 Dysuria (principal) | CPT/HCPCS: 81000 ==

== ENCOUNTER 2024-09-15 17:46 | Day surgery (SDC) | payer BC, MEDICAID, SELFPAY ==
[2024-09-15] VITALS (17 sets, daily range): BP systolic 114–153; BP diastolic 67–96; PULSE 79–109; RESP 14–20; TEMP 36.8–37; O2SAT 93–100; BMI 23.8
--- NOTE | 2024-09-15 18:24 | XRR_ITS ---
PROCEDURE INFORMATION: Exam: XR Chest Exam date and time: 09/15/2024 6:55 PM Age: 28 years old Clinical indication: Pain; Chest pressure; Additional info: Cp-fb TECHNIQUE: Imaging protocol: Radiologic exam of the chest. Views: 1 view. COMPARISON: CR XR KUB [id number] 08/13/2019 9:51 AM FINDINGS: Lungs: Unremarkable. No consolidation. Pleural spaces: Unremarkable. No pleural effusion. No pneumothorax. Heart/Mediastinum: Unremarkable. No cardiomegaly. Bones/joints: Unremarkable. XR/XR chest 1V portable [id number] IMPRESSION: No acute findings.
[2024-09-15] MEDS: ondansetron 2 mg/ML SDV 2 mL 4 MG IVP (18:41)
[2024-09-15] MEDS: glucagon 1 mg/mL KIT 1 mL IVP (18:41)
[2024-09-15] MEDS: sodium chloride 0.9% 500 ML IV (18:42)
--- NOTE | 2024-09-15 18:44 | ED_ITS ---
HPI - Abdominal Pain 2 General: Chief Complaint: Airway/Esophagus Foreign Body Stated Complaint: something stuck in throat, trouble breathing Time Seen by Provider: 09/15/24 18:15 Source: patient Mode of arrival: ambulatory Limitations: no limitations History of Present Illness: This patient was referred to the emergency department by urgent care clinic. The patient apparently was eating chicken breast approximately 2 PM today and felt like that she did not completely swallow one of the pieces of chicken. She states she has a sensation of fullness in her lower to mid chest. She states she is difficult to swallow any liquids or saliva. She states that she is throwing up clear liquids but no solid food or other objects. She has not had any bloody emesis etc. She has never had a prior episode of esophageal obstruction, swallowing difficulties etc. She states she had some acid reflux during but otherwise when she is not she has no issues. Onset (ago): hour(s) (4) Related Data Home Medications Medication Instructions Recorded Confirmed No Known Home Medications 09/15/24 09/15/24 Allergies Allergy/AdvReac Type Severity Reaction Status Date / Time No Known Allergies Allergy Verified 09/15/24 17:15 [facility] ED 2 PFSH: Medical History No pertinent past medical history Surgical History No pertinent past surgical history Family History Mother Thyroid disease Cancer Other Diabetes Heart disease Hypertension Denies family history of Clotting disorder Anesthesia complication Bleeding disorder Social History Smoking and tobacco/nicotine status: never used tobacco/nicotine Alcohol intake: never Substance/Drug Use: never Female Reproductive History: Spontaneous abortions: No Physical Exam 2 Narrative: EXAM NARRATIVE: Uncomfortable appearing but able to speak and phonate normally. She makes good eye contact. Const: COMMON NORMALS: average body habitus and patient oriented x3 GENERAL APPEARANCE: cooperative HENMT: COMMON NORMALS: Normal nasal mucous membranes and turbinates present, moist oral mucous membranes and oropharynx normal NOSE: Normal nasal mucous membranes and turbinates present Eye: COMMON NORMALS: Equal, round and reactive pupils present, EOMs intact bilaterally and conjunctivae normal CONJUNCTIVA: Yes conjunctivae normal P UPIL: Yes Equal, round and reactive pupils present Neck/C-Spine: COMMON NORMALS: full ROM, no lymphadenopathy and supple Chest: COMMONS NORMALS: normal inspection of the chest and normal palpation of entire chest wall Resp: COMMON NORMALS: normal respiratory effort, No retractions, No use of accessory muscles and clear to auscultation bilaterally EFFORT & INSPECTION: Yes able to speak in complete sentences AUSCULTATION: clear to auscultation bilaterally Cardio: COMMON NORMALS: regular rate, regular rhythm, No murmurs present (Cardio) and Peripheral pulses 2+ throughout RATE: regular rate RHYTHM: r egular rhythm PERIPHERAL PULSES: Peripheral pulses 2+ throughout GI: AUSCULTATION: Yes normoactive bowel sounds PALPATION: No Firmness to palpation present (GI), Yes Tenderness to palpation present (GI) (Mild tenderness in the epigastric to palpation), No Guarding due to palpation present (GI) and No Rigid due to palpation Back/Pelvis: COMMON NORMALS: thoracic and lumbar spine normal to inspection, no thoracic nor lumbar tenderness and thoraco-lumbar ROM normal Extremity: COMMON NORMALS: normal to inspection, full ROM and capillary refill normal Neuro: COMMON NORMALS: patient oriented x3, moves all extremities and no focal motor deficits Psych: COMMON NORMALS: mental status grossly normal Skin: COMMON NORMALS: no rashes or lesions noted and turgor normal GENERAL SKIN EXAM: no rashes or lesions noted and turgor normal Course 2 Reevaluation(s): Reevaluation #1: Patient had no resolution of symptoms and in fact she may be a bit more uncomfortable. She has not any retching or vomiting other than just inability to swallow liquids while in the emergency department. Discussed the lack of any significant findings on plain films etc. that would reveal any evidence of foreign body and that endoscopy is the typical way that this is diagnosed and resolved. Time: 19:22 Reevaluation #2: To endoscopy suite for upper GI evaluation Time: 19:56 Consultations: Consultation #1: Discussed with general surgeon on-call Dr. Carvajal who will make plans for urgent endoscopy at this time. Time: 19:23 Vital Signs: Vital signs: Vital Signs Temperature 98.3 F 09/15/24 17:59 Pulse Rate 79 09/15/24 19:15 Respiratory Rate 18 11/25/24 19:22 Blood Pressure 131/85 09/15/24 19:15 Pulse Oximetry 100 09/15/24 19:15 Oxygen Delivery Me thod Room Air 09/15/24 19:15 MDM - Abdominal Pain Medical Decision Making Patient presented as noted in the history of present illness. Given her presentation the most likely diagnosis on the differential is retained food bolus. No prior history of similar occurrence making chronic esophageal obstruction such as esophageal web, distal esophagitis with sclerosis etc. unlikely. Has not had multiple episodes of retching and diffuse chest pain making Boerhaave syndrome less likely. IV fluids were given glucagon antiemetics were also given none of which had any clinical effect on her symptoms. Chest x-ray was unremarkable as well. General surgery was consulted and agreed to take the patient to endoscopy suite for upper endoscopy evaluation. Lab Data I reviewed the patient's lab results. 09/15/24 18:49 09/15/24 18:44 Labs/Radiology: Radiology Impressions Chest X-Ray 09/15/24 18:24 IMPRESSION: No acute findings. Laboratory Results WBC 6.60 10^3/uL (3.29-11.43) 09/15/24 18:49 RBC 4.60 10^6/uL (3.85-5.65) 09/15/24 18:49 Hgb 13.20 g/dL (11.27-16.99) 09/15/24 18:49 Hct 39.7 % (36-47) 09/15/24 18:49 MCV 86.3 fl (85-98) 09/15/24 18:49 MCH 28.7 pg (27-33) 09/15/24 18:49 MCHC 33.2 g/dL (30-55) 09/15/24 18:49 RDW 13.1 % (12.1-15.1) 09/15/24 18:49 Plt Count 220 10^3/cmm (157-399) 09/15/24 18:49 MPV 11.2 fL (7.4-10.4) H 09/15/24 18:49 Neut % (Auto) 69.5 % 09/15/24 18:49 Lymph % (Auto) 22.4 % 09/15/24 18:49 [place] % (Auto) 5.9 % 09/15/24 18:49 Eos % (Auto) 1.4 % 09/15/24 18:49 Baso % (Auto) 0.6 % 09/15/24 18:49 Neut # (Auto) 4.59 10^3/uL (1.8-7.7) 09/15/24 18:49 Lymph # (Auto) 1.5 10^3/uL (0.8-4.8) 09/15/24 18:49 [place] # (Auto) 0.4 10^3/uL (0.2-0.9) 09/15/24 18:49 Eos # (Auto) 0.1 10^3/uL (0.0-0.8) 09/15/24 18:49 Baso # (Auto) 0.0 10^3/uL (0.0-0.1) 09/15/24 18:49 Nucleated RBC % (auto) 0 % 09/15/24 18:49 Nucleated RBCs # 0.0 /100WBC 09/15/24 18:49 Sodium 136 mmol/L (136-145) 09/15/24 18:44 Potassium 3.4 mmol/L (3.5-5.1) L 09/15/24 18:44 Chloride 102 mmol/L (98-107) 09/15/24 18:44 Carbon Dioxide 26 mmol/L (22-29) 09/15/24 18:44 Anion Gap 11.4 (5-19) 09/15/24 18:44 BUN 7 mg/dL (6-20) 09/15/24 18:44 Creatinine 0.8 mg/dL (0.5-0.9) 09/15/24 18:44 GFR Calculation 86.7 mL/min (90-130) L 09/15/24 18:44 Glucose 97 mg/dL (65-115) 09/15/24 18:44 Calculated Osmolality 280 mOsm/kg (285-295) L 09/15/24 18:44 Calcium 8.7 mg/dL (8.5-10.5) 09/15/24 18:44 Total Bilirubin 0.2 mg/dL (0.15-1.2) 09/15/24 18:44 AST 19 U/L (0-32) 09/15/24 18:44 ALT 28 U/L (0-33) 09/15/24 18:44 Alkaline Phosphatase 91 U/L (35-105) 09/15/24 18:44 Total Protein 7.3 g/dL (6.6-8.7) 09/15/24 18:44 Albumin 4.4 g/dL (3.5-5.2) 09/15/24 18:44 Globulin 2.9 g/dL (1.3-4.6) 09/15/24 18:44 Lipase 26 U/L (13-60) 09/15/24 18:44 All radiology interpretation(s) finalized by discharge Discharge Plan Discharge Patient Disposition: Placed in Observation Clinical Impression: Esophageal obstruction due to food impaction Coding Level of Care Code ED Pier Master for Nia Whitfield
[2024-09-15 19:01] LABS: Basophils % 0.6 %; Eosinophils # 0.1 10^3/uL (0.0-0.8); Eosinophils % 1.4 %; Hematocrit 39.7 % (36-47); Lymphocytes # 1.5 10^3/uL (0.8-4.8); Lymphocytes % 22.4 %; Mean Corpuscular HGB Conc 33.2 g/dL (30-55); Mean Corpuscular Hemoglobin 28.7 pg (27-33); Mean Corpuscular Volume 86.3 fl (85-98); Mean Platelet Volume 11.2 fL (7.4-10.4); Monocytes # 0.4 10^3/uL (0.2-0.9); Monocytes % 5.9 %; Neutrophils # 4.59 10^3/uL (1.8-7.7); Neutrophils % 69.5 %; Nucleated Red Blood Cells % 0 %; Platelet Count 220 10^3/cmm (157-399); Red Cell Distribution Width 13.1 % (12.1-15.1)
[2024-09-15 19:12] LABS: Alanine Aminotransferase 28 U/L (0-33); Albumin Level 4.4 g/dL (3.5-5.2); Alkaline Phosphatase 91 U/L (35-105); Anion Gap 11.4 (5-19); Aspartate Amino Transferase 19 U/L (0-32); Blood Urea Nitrogen 7 mg/dL (6-20); Calcium 8.7 mg/dL (8.5-10.5); Carbon Dioxide 26 mmol/L (22-29); Chloride 102 mmol/L (98-107); Creatinine Clr Calc Pharmacy 119.8101; Globulin 2.9 g/dL (1.3-4.6); Glomerular Filtration Rate 86.7 mL/min (90-130); Glucose 97 mg/dL (65-115); Lipase 26 U/L (13-60); Osmolality Calculated 280 mOsm/kg (285-295); Potassium 3.4 mmol/L (3.5-5.1); Sodium 136 mmol/L (136-145); Total Bilirubin 0.2 mg/dL (0.15-1.2); Total Protein 7.3 g/dL (6.6-8.7)
[2024-09-15] MEDS: morphine 4 mg/mL SDV 1 mL IVP (19:22)
--- NOTE | 2024-09-15 19:49 | P.HP_ITS ---
Providers/Chief Complaint 2 Primary Care Provider: Vikram Hutchinson MD Chief Complaint: something stuck in throat, trouble breathing History of Present Illness Gricel Hernandez is a 28 year old Female Who presents to the hospital due to a food bolus impaction, she was eating chicken around 2 PM after swallowing she noted that the food did not go down, since then she has not been able to swallow and is throwing up saliva. In the ER chest x-ray was done which is unremarkable and she was given glucagon without success. Has had similar episodes in the past but never required to come to the hospital usually food eventually passes. Review of Systems 2 General: Reports: 10 or more systems reviewed and unremarkable except in HPI and below Medications/Allergies Home Medications Medication Instructions Recorded Confirmed Last Taken Type No Known Home Medications 09/15/24 09/15/24 Unknown History Allergies Allergy/AdvReac Type Severity Reaction Status Date / Time No Known Allergies Allergy Verified 09/15/24 17:15 PFSH Acute 2 PFSH: Medical History No pertinent past medical history Surgical History No pertinent past surgical history Family History Mother Thyroid disease Cancer Other Diabetes Heart disease Hypertension Denies family history of Clotting disorder Anesthesia complication Bleeding disorder Social History Smoking and tobacco/nicotine status: never used tobacco/nicotine Alcohol intake: never Substance/Drug Use: never Female Reproductive History: Spontaneous abortions: No Vitals/I&O/Wt Last Vital Signs Temp 98.3 F 09/15/24 17:59 Pulse 79 09/15/24 19:15 Resp 18 09/15/24 19:22 BP 131/85 09/15/24 19:15 Pulse Ox 100 09/15/24 19:15 O2 Del Method Room Air 09/15/24 19:15 Weight last 48 hrs Weight 166 lb Physical Exam 2 Narrative: General : Patient is well developed , no acute distress, oriented x3 Head : Normal cephalic, a-traumatic. Nose : Mucous membranes are without erythema. Lungs : Equal chest rise bilaterally, no use of accessory muscles, trachea is midline. CV : Rate and rhythm are normal. Abdomen : Soft, ND, NT, no g/r/m Extremities : No edema. Upper extremities are normal bilaterally. Back : non-tender to palpation, no CVA tenderness. Data 09/15/24 18:49 09/15/24 18:44 A&P Assessment and plan (1) Esophageal obstruction due to food impaction: Plan After complete history, physical examination and review of all available clinical data the following is my assessment. Patient clinical picture consistent with a food bolus impaction. I have offer EGD with disimpaction and possible biopsy. I discussed all risk of the procedure including the risk of perforation of the esophagus requiring in surgical intervention. I also explained the risks of injury to soft tissue of the mouth and pharynx. Patient shows understanding agrees to proceed. Attestations 2 Medical Necessity Statement*: Patient will be discharged after endoscopy Coding Level of Care Code Acute Code for Chg Fwd Diagnoses Esophageal obstruction due to food impaction T18.128A; W44.F3XA
--- NOTE | 2024-09-15 20:15 | ANES.PREANE2 ---
Pre-Anesthetic Assessment Height/Weight: Height 1.78 m Weight 75.296 kg Temp Pulse Resp BP Pulse Ox O2 Del Method 98.3 F 87 16 118/83 100 Room Air 09/15/24 21:08 09/15/24 21:17 09/15/24 21:17 09/15/24 21:17 09/15/24 21:17 09/15/24 21:17 Operation Date: 09/15/24 20:30 Proposed Procedures p EGD(Not Applicable) - Amandeep Cook MD Familial anesthetic complications: Food bolus Was Beta Adilia taken within 24 hours: N/A Was Clonidine taken within 24 hours: N/A Social No alcohol and No tobacco Airway Mallampati: Class I Dentition: full GI Gastroesophageal Reflux Disease Anesthetic Plan ASA status: 1E Anesthesia: General Risk of > 500 ml blood loss (7ml/kg in children): No Medications/Allergies Home Medications Medication Instructions Recorded Confirmed Last Taken Type pantoprazole 40 mg tablet,delayed 40 mg PO BID #60 tabs 09/15/24 Unknown Rx release sucralfate 100 mg/mL oral 1 g (10 mL) PO BID 2 weeks #280 mL 09/15/24 Unknown Rx suspension Allergies Allergy/AdvReac Type Severity Reaction Status Date / Time No Known Allergies Allergy Verified 09/15/24 17:15 [facility] Anesthesia Medical History No pertinent past medical history Surgical History No pertinent past surgical history Family History Mother Thyroid disease Cancer Other Diabetes Heart disease Hypertension Denies family history of Clotting disorder Anesthesia complication Bleeding disorder Social History Smoking and tobacco/nicotine status: never used tobacco/nicotine Alcohol intake: never Substance/Drug Use: never Female Reproductive History Spontaneous abortions: No Data Anesthesia 09/15/24 18:49 09/15/24 18:44 Short CBC 09/15/24 Range/Units 18:49 WBC 6.60 (3.29-11.43) 10^3/uL Hgb 13.20 (11.27-16.99) g/dL Hct 39.7 (36-47) % MCV 86.3 (85-98) fl Plt Count 220 (157-399) 10^3/cmm Neut % (Auto) 69.5 % Neut # (Auto) 4.59 (1.8-7.7) 10^3/uL BMP 09/15/24 18:44 Sodium 136 Potassium 3.4 L Chloride 102 Carbon Dioxide 26 BUN 7 Creatinine 0.8 Glucose 97 Calcium 8.7 Liver Function 09/15/24 Range/Units 18:44 Total Bilirubin 0.2 (0.15-1.2) mg/dL AST 19 (0-32) U/L ALT 28 (0-33) U/L Alkaline Phosphatase 91 (35-105) U/L Albumin 4.4 (3.5-5.2) g/dL Cardiac Studies: No Data to Display
[2024-09-15 20:18] LABS: HCG, Serum Qual Negative (Negative)
[2024-09-15 21:21] LABS: OR HCG Qualitative Urine Negative (Negative)
--- NOTE | 2024-09-15 21:30 | ANE.PACU2 ---
Inpatient post-anesthesia follow up: Airway intact: Yes Vital signs: Temperature 98.3 F Pulse Rate 87 Respiratory Rate 16 Blood Pressure 118/83 Pulse Oximetry 100 Oxygen Delivery Me thod Room Air Oxygen Flow Rate Fraction of Inspir ed Oxygen Hydration adequate: Yes Nausea and vomiting: No Pain level: 1 Mental status: Baseline
== END 2024-09-15 21:32 | disposition home or self-care (01) ==
LOC: ER 19:25 → GILAB 20:11
PROVIDERS: Anesthesiology; Emergency Provider Emergency Medicine; PCP Family Medicine; Visit Provider Surgery
PROC: 0DJ08ZZ Inspection of Upper Intestinal Tract, Via Natural or Artificial Opening Endoscopic (ICD-10-PCS; CPT 43235; principal; 2024-09-15 20:30)
DX: T18.128A Food in esophagus causing other injury, initial encounter (principal); W44.F3XA Food entering into or through a natural orifice, initial encounter; K29.50 Unspecified chronic gastritis without bleeding
CPT/HCPCS: 43239; 43247; 71045; 80053; 81025; 83690; 84703; 85025; 88305; 88342; J0330; J1610; J2270; J2405; J2704; J7040

== ENCOUNTER 2025-05-07 03:32 | Outpatient (CLI) | payer BC, MEDICAID, SELFPAY ==
[2025-05-07 03:43] VITALS: BMI 27.4
[2025-05-07 03:51] VITALS: BP 124/80; PULSE 101
[2025-05-07 04:06] VITALS: BP 122/77; PULSE 100
[2025-05-07 04:21] VITALS: BP 123/69; PULSE 88
[2025-05-07 04:25] LABS: Nitrazine Paper, PH Negative
[2025-05-07 04:30] LABS: Glucose Urine UA Negative (Normal); Nitrate Urine Negative (Negative); Specific Gravity, Urine 1.007 (1.005-1.030)
[2025-05-07 04:36] VITALS: BP 118/67; PULSE 93
[2025-05-07 04:51] VITALS: BP 126/76; PULSE 97
== END 2025-05-07 05:01 | disposition home or self-care (01) ==
LOC: OPOB 03:33 → OBGYN 03:34
PROVIDERS: PCP Family Medicine; Visit Provider Family Medicine
DX: O26.899 Other specified pregnancy related conditions, unspecified trimester (principal); Z3A.00 Weeks of gestation of pregnancy not specified; N89.8 Other specified noninflammatory disorders of vagina
CPT/HCPCS: 59025; 81001; 83986; 99211

== ENCOUNTER 2025-05-17 04:21 | Outpatient (CLI) | payer BC, MEDICAID, SELFPAY ==
[2025-05-17] VITALS (9 sets, daily range): BP systolic 102–140; BP diastolic 55–81; PULSE 79–88; RESP 16; TEMP 36.6; O2SAT 98; BMI 27.3
[2025-05-17 05:17] LABS: Nitrazine Paper, PH Negative
[2025-05-17 05:19] LABS: Glucose Urine UA Negative (Normal); Nitrate Urine Negative (Negative); Specific Gravity, Urine 1.007 (1.005-1.030)
[2025-05-17 05:24] LABS: Add Urine Microscopic? YES
[2025-05-17] MEDS: HYDROcodone-acetaminophen 5-325 mg Tablet 1 TAB PO (05:33)
== END 2025-05-17 06:57 | disposition home or self-care (01) ==
LOC: OPOB 04:24 → OBGYN 04:25
PROVIDERS: Family Medicine; PCP Family Medicine; Visit Provider Family Medicine
DX: O26.899 Other specified pregnancy related conditions, unspecified trimester (principal); Z3A.00 Weeks of gestation of pregnancy not specified; R10.9 Unspecified abdominal pain; N89.8 Other specified noninflammatory disorders of vagina
CPT/HCPCS: 59025; 81001; 83986; 87086; 99211; J9999

== ENCOUNTER 2025-06-10 09:45 | Outpatient (CLI) | payer BC, MEDICAID, SELFPAY ==
[2025-06-10 09:54] VITALS: BP 129/84; PULSE 105
[2025-06-10 10:09] VITALS: BP 126/77; PULSE 89
[2025-06-10 10:10] VITALS: BMI 27.6
[2025-06-10 10:24] VITALS: BP 127/80; PULSE 87
[2025-06-10 10:39] VITALS: BP 120/80; PULSE 87; RESP 16
[2025-06-10 12:39] LABS: Nitrazine Paper, PH Negative
== END 2025-06-10 10:39 | disposition home or self-care (01) ==
LOC: OPOB 09:48 → OBGYN 09:48
PROVIDERS: PCP Family Medicine; Visit Provider Family Medicine
DX: O26.899 Other specified pregnancy related conditions, unspecified trimester (principal); Z3A.00 Weeks of gestation of pregnancy not specified; N89.8 Other specified noninflammatory disorders of vagina
CPT/HCPCS: 59025; 83986; 99211

== ENCOUNTER 2025-06-15 07:01 | Inpatient (IN) | payer BC, MEDICAID, SELFPAY ==
[2025-06-15] VITALS (30 sets, daily range): BP systolic 121–156; BP diastolic 59–90; PULSE 71–101; RESP 15–18; TEMP 36–36.7; O2SAT 98–99; BMI 27.9
[2025-06-15 08:37] LABS: Hematocrit 32.4 % (36-47); Hemoglobin 10.40 g/dL (11.27-16.99); Mean Corpuscular HGB Conc 32.1 g/dL (30-55); Mean Corpuscular Hemoglobin 26.5 pg (27-33); Mean Corpuscular Volume 82.4 fl (85-98); Nucleated Red Blood Cells % 0 %; Platelet Count 152 10^3/cmm (157-399); Red Blood Count 3.93 10^6/uL (3.85-5.65); White Blood Count 9.27 10^3/uL (3.29-11.43)
[2025-06-15] MEDS: fentaNYL 50 mcg/mL INJ 2mL IVP ×2 (12:56→18:03)
[2025-06-15] MEDS: oxytocin 30 UNIT/500 ML BAG IV (17:15)
--- NOTE | 2025-06-15 17:20 | PM.OBGYHP ---
Providers/Chief Complaint Admitting Physician: Zain Figueroa MD Primary Care Provider: Vikram Hutchinson MD Chief Complaint: contractions HPI NIGHT TIME NANNY History of Present Illness Gricel Hernandez is a 29 year old G4, P3 female that presents at 39 weeks with regular contractions. Patient did have cervical change after 1 hour and the patient had spontaneous rupture membranes. Patient was then admitted for labor management. Patient had no significant complications during her . Patient is GBS negative. 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 Patient had no complications from this. Present Details : 4 Para: 3 Labs Blood type OB HPI: O (+) positive Rubella: Immune RPR: Negative GBS: Negative Review of Systems Const: Denies: fever(s), chills, body aches, fatigue or diaphoresis Eyes: Denies: change in vision or eye discharge ENMT: Reports: throat pain, hoarseness, nasal discharge and post nasal drip; Denies: odynophagia Card: Denies: chest pain, palpitations, irregular heart rhythm or swelling of feet/ankles Resp: Reports: non-productive cough; Denies: dyspnea, productive cough or wheezing GI: Denies: abdominal pain, nausea, vomiting or diarrhea Skin/Breast: Denies: rash or pruritus Medications/Allergies Home Medications ?Medication ?Instructions ?Recorded ?Confirmed ?Last Taken ?Type [id number]-FA 1 mg 1 tab PO 1XD 05/07/25 05/17/25 05/16/25 History tablet Allergies Allergy/AdvReac Type Severity Reaction Status Date / Time No Known Allergies Allergy Verified 05/17/25 05:09 [facility] NIGHT TIME NANNY PFSH: Medical History (Updated 06/15/25 @ 17:26 by Zain Figueroa MD) URI with cough and congestion No pertinent past medical history Surgical History No pertinent past surgical history Family History Mother Thyroid disease Cancer Other Diabetes Heart disease Hypertension Denies family history of Clotting disorder Anesthesia complication Bleeding disorder Social History Smoking and tobacco/nicotine status: never used tobacco/nicotine Alcohol intake: never Substance/Drug Use: never History History History 3 Term 3 0 Miscarriages/Ectopic 0 Living Children 3 Past Pregnancies Del. Date GA/Weeks Outcome Route Wt Inf Gender Labor Lgth Comp. Anesthesia Location 10/02/18 41 live - full term Vaginal 2.948 kg Male 12 [facility] 02/07/21 39 live - full term Vaginal 3.289 kg Female 2 hours Precipitous Delivery [facility] 06/06/23 38 live - full term Vaginal 2.92 kg Female 16 [facility] Delivery Date: 10/02/18 Last Updated by: Vikram Hutchinson MD Induced, no tears Delivery Date: 02/07/21 Last Updated by: Vikram Hutchinson MD Quick delivery but I was present for delivery. Anti-M antibodies Delivery Date: 06/06/23 Last Updated by: Vikram Hutchinson MD Fentanyl for pain control, Anti-M antibodies with low titer Vitals/I&O/Wt Last Vital Signs Temp 97.0 F L 06/15/25 15:02 Pulse 85 06/15/25 15:02 Resp 17 06/15/25 12:56 BP 121/83 06/15/25 15:02 O2 Del Method Room Air 06/15/25 09:22 Weight last 48 hrs Weight 88.451 kg Weight 195 g Physical Exam Const: COMMON NORMALS: no acute distress, average body habitus and patient oriented x3 Resp: COMMON NORMALS: normal respiratory effort and No retractions Cardio: COMMON NORMALS: no JVD, regular rate and regular rhythm GI: OTHER: Gravid uterus : COMMON NORMALS: Yes normal external appearance MANUAL OB EXAM: dilated 5 cm Extremity: COMMON NORMALS: no clubbing, cyanosis or edema Neuro: COMMON NORMALS: patient oriented x3, moves all extremities, no focal motor deficits and no sensory deficits noted Psych: COMMON NORMALS: mental status grossly normal and cooperative Data 06/15/25 07:45 Results Labs OB ([facility]): Blood Type O Positive Today Antibody Screen Positive Today Hct, (36-47) 32.4 % L Today Hgb, (11.27-16.99) 10.40 g/dL L Today Rho(D) Type Rh positive Today Plt Count, (157-399) 152 10^3/cmm L Today HCG, Qual, (Negative) Negative 09/15/24 Ur Barbiturates Screen, (Negative) Negative ng/mL 07/10/24 Ur Phencyclidine Scrn, (Negative) Negative ng/mL 07/10/24 Ur Amphetamines Screen, (Negative) Negative ng/mL 07/10/24 U Benzodiazepines Scrn, (Negative) Negative ng/mL 07/10/24 Urine Cocaine Screen, (Negative) Negative ng/mL 07/10/24 U Marijuana (THC) Screen, (Negative) Negative ng/mL 07/10/24 Micro Urine Specimen 05/17/25 A&P Assessment and plan 1. Term : Patient is not made significant progress over the last several hours. Forebag was ruptured and we will start low-dose pit to try to improve contractions as they have spaced out. Continue labor management. 2. 39 weeks gestation of : 3. 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 Patient had low titer PDMP PDMP Reviewed: Not Reviewed Attestations Medical Necessity Statement*: Patient admitted for labor and spontaneous rupture of membranes. 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
--- NOTE | 2025-06-15 19:57 | PM.DELIVERY ---
Delivery Note: Date of delivery: June 15, 2025 Pre-delivery diagnoses: Term intrauterine Post-delivery diagnoses: Same, viable infant male Procedure: Spontaneous vaginal delivery Op report anesthesia: None Delivering Physician: Levar Figueroa MD Estimated blood loss (mL): 200 Pre-Delivery Course: This is a 29-year-old G4, P4 that presented in labor and had spontaneous rupture of membranes soon after arrival. Patient progressed to 5 cm and then required a little bit of augmentation to completely dilate. Delivery: Once patient was completely dilated patient was placed into the normal lithotomy position and started pushing with contractions. Patient delivered infant's head without difficulty followed by shoulder and body. Infant was placed onto mother's abdomen. After delay the cord was clamped and cut. Cord blood was obtained. Placenta was delivered soon after. Review of the perineum did not show any significant tears. Initially there was some bleeding that stopped as uterine tone improved with oxytocin. Review of the vaginal wall and cervix did not demonstrate any significant concerns. At the end of the procedure the bleeding was controlled. Post-Delivery Status: Stable History History History 3 Term 3 0 Miscarriages/Ectopic 0 Living Children 3 Past Pregnancies Del. Date GA/Weeks Outcome Route Wt Inf Gender Labor Lgth Comp. Anesthesia Location 10/02/18 41 live - full term Vaginal 2.948 kg Male 12 [facility] 02/07/21 39 live - full term Vaginal 3.289 kg Female 2 hours Precipitous Delivery [facility] 06/06/23 38 live - full term Vaginal 2.92 kg Female 16 [facility] Delivery Date: 10/02/18 Last Updated by: Vikram Hutchinson MD Induced, no tears Delivery Date: 02/07/21 Last Updated by: Vikram Hutchinson MD Quick delivery but I was present for delivery. Anti-M antibodies Delivery Date: 06/06/23 Last Updated by: Vikram Hutchinson MD Fentanyl for pain control, Anti-M antibodies with low titer A&P Assessment and plan 1. Spontaneous vaginal delivery: Proceed with routine care. PDMP PDMP Reviewed: Not Reviewed Coding Level of Care Code Acute Code for Chg Fwd Diagnoses Spontaneous vaginal delivery O80
[2025-06-15] MEDS: benzocaine-menthol 78 gm Canister 1 SPRAY TOPICAL (22:10)
--- NOTE | 2025-06-15 22:57 | PC.NURSE ---
2111 Dr. Figueroa notified of increased bleeding with moderate sized clots; orders for Cytotec CT received.
[2025-06-15] MEDS: HYDROcodone-acetaminophen 5-325 mg Tablet PO (23:09)
[2025-06-16] VITALS (7 sets, daily range): BP systolic 113–129; BP diastolic 62–87; PULSE 69–99; RESP 15–18; TEMP 36.6–36.7; O2SAT 97–99
[2025-06-16] MEDS: HYDROcodone-acetaminophen 5-325 mg Tablet PO (05:27)
--- NOTE | 2025-06-16 07:44 | PM.OBGYDC ---
Discharge Providers HEAD LOADER Date of Admission: 06/15/25 07:01 Date of Discharge: 06/18/25 Attending Provider at Admission: Zain Figueroa MD Attending Provider at Discharge: Zain Figueroa MD Primary Care Provider: Vikram Hutchinson MD Diagnoses at Discharge Discharge Diagnosis 1. Spontaneous vaginal delivery: Reason for Visit Reason for Visit: contractions Hospital Course Hospital Course This is a 29-year-old G4, P4 that presented at 39 weeks with contractions followed by spontaneous rupture membranes soon after arrival. Patient had progressed to 5 cm and then required augmentation to complete her dilation. The patient then delivered a viable male without complication. Patient did have some persistent bleeding after delivery and did require rectal Cytotec in addition to the Pitocin. Afterwards the bleeding had completely subsided and is now appropriate. Vital signs been stable. Information Peripartum Data: Infant Delivery Method: Vaginal Laceration description: None Episiotomy description: None complications: none Physical Exam Const: COMMON NORMALS: no acute distress, average body habitus and patient oriented x3 Neck/C-Spine: COMMON NORMALS: no JVD Resp: COMMON NORMALS: normal respiratory effort and No retractions Cardio: COMMON NORMALS: no JVD, regular rate and regular rhythm RATE: regular rate RHYTHM: regular rhythm GI: OTHER: Uterus firm and below umbilicus Extremity: COMMON NORMALS: no clubbing, cyanosis or edema Neuro: COMMON NORMALS: patient oriented x3, moves all extremities, no focal motor deficits and no sensory deficits noted Psych: COMMON NORMALS: mental status grossly normal and cooperative History History History 3 Term 3 0 Miscarriages/Ectopic 0 Living Children 3 Past Pregnancies Del. Date GA/Weeks Outcome Route Wt Inf Gender Labor Lgth Comp. Anesthesia Location 10/02/18 41 live - full term Vaginal 2.948 kg Male 12 [facility] 02/07/21 39 live - full term Vaginal 3.289 kg Female 2 hours Precipitous Delivery [facility] [place] 06/06/23 38 live - full term [facility] 2.92 [facility] Delivery Date: 10/02/18 Last Updated by: Vikram Hutchinson MD Induced, no tears Delivery Date: 02/07/21 Last Updated by: Vikram Hutchinson MD Quick delivery but I was present for delivery. Anti-M antibodies Delivery Date: 06/06/23 Last Updated by: Vikram Hutchinson MD Fentanyl for pain control, Anti-M antibodies with low titer Discharge Data Studies Completed and Pending Pending at discharge Category Date Time Status Hemagram Timed Lab 06/16/25 08:08 Uncollected Laboratory Results WBC 9.27 10^3/uL (3.29-11.43) 06/15/25 07:45 RBC 3.93 10^6/uL (3.85-5.65) 06/15/25 07:45 Hgb 10.40 g/dL (11.27-16.99) L 06/15/25 07:45 Hct 32.4 % (36-47) L 06/15/25 07:45 MCV 82.4 fl (85-98) L 06/15/25 07:45 MCH 26.5 pg (27-33) L 06/15/25 07:45 MCHC 32.1 g/dL (30-55) 06/15/25 07:45 RDW 15.3 % (12.1-15.1) H 06/15/25 07:45 Plt Count 152 10^3/cmm (157-399) L 06/15/25 07:45 MPV 11.5 fL (7.4-10.4) H 06/15/25 07:45 Neut % (Auto) 62.4 % 06/15/25 07:45 Lymph % (Auto) 25.8 % 06/15/25 07:45 Milam % (Auto) 7.8 % 06/15/25 07:45 Eos % (Auto) 2.6 % 06/15/25 07:45 Baso % (Auto) 0.5 % 06/15/25 07:45 Neut # (Auto) 5.79 10^3/uL (1.8-7.7) 06/15/25 07:45 Lymph # (Auto) 2.4 10^3/uL (0.8-4.8) 06/15/25 07:45 Milam # (Auto) 0.7 10^3/uL (0.2-0.9) 06/15/25 07:45 Eos # (Auto) 0.2 10^3/uL (0.0-0.8) 06/15/25 07:45 Baso # (Auto) 0.1 10^3/uL (0.0-0.1) 06/15/25 07:45 Nucleated RBC % (auto) 0 % 06/15/25 07:45 Nucleated RBCs # 0.0 /100WBC 06/15/25 07:45 Blood Type O Positive 06/15/25 07:45 Rho(D) Type Rh positive 06/15/25 07:45 Antibody Screen Positive 06/15/25 07:45 Antibody Identification Anti-M 06/15/25 07:45 Vitals Last Vital Signs Temp 98.1 F 06/16/25 03:35 Pulse 80 06/16/25 05:35 Resp 18 06/16/25 05:35 BP 122/87 06/16/25 05:35 Pulse Ox 99 06/16/25 05:35 O2 Del Method Room Air 06/16/25 05:35 Results Labs OB ([facility]): Blood Type O Positive 06/15/25 Antibody Screen Positive 06/15/25 Hct, (36-47) 29.1 % L 06/16/25 Hgb, (11.27-16.99) 9.30 g/dL L 06/16/25 Rho(D) Type Rh positive 06/15/25 Plt Count, (157-399) 150 10^3/cmm L 06/16/25 HCG, Qual, (Negative) Negative 09/15/24 Ur Barbiturates Screen, (Negative) Negative ng/mL 07/10/24 Ur Phencyclidine Scrn, (Negative) Negative ng/mL 07/10/24 Ur Amphetamines Screen, (Negative) Negative ng/mL 07/10/24 U Benzodiazepines Scrn, (Negative) Negative ng/mL 07/10/24 Urine Cocaine Screen, (Negative) Negative ng/mL 07/10/24 U Marijuana (THC) Screen, (Negative) Negative ng/mL 07/10/24 Micro Urine Specimen 05/17/25 Discharge Plan Discharge Patient Disposition: Home Condition: Stable Prescriptions: Continued [id number]-[id number]-Vm-FA 1 mg Tablet 1 tab PO 1XD Discharge Order = DC NOW: Discharge Order (Routine); Ordered 06/16/25 Ordered By: Zain Figueroa Referrals: Zain Figueroa MD [Physician, Family Practice] - 6 Weeks Discharge Diet: Usual diet Discharge Activity: Limit activity as instructed Patient Instructions: Depression (DC), Opioid Safety (DC), Preeclampsia and Eclampsia After Delivery (GEN), Hemorrhage (DC), OB Discharge Report, OB Food/Drug Interaction Guide, Opioid Safety, OB Home Care, OB Vaginal Deliveries, Patient Portal & [place] Instructions, Abnormal Bleeding Discharge Attestations HEAD LOADER Time Spent in Discharge Care*: less than 30 min Coding Level of Care Code Acute Code for Chg Fwd Diagnoses Spontaneous vaginal delivery O80
[2025-06-16 08:14] LABS: Hematocrit 29.1 % (36-47); Hemoglobin 9.30 g/dL (11.27-16.99); Mean Corpuscular HGB Conc 32.0 g/dL (30-55); Mean Corpuscular Hemoglobin 26.9 pg (27-33); Mean Corpuscular Volume 84.1 fl (85-98); Platelet Count 150 10^3/cmm (157-399); Red Blood Count 3.46 10^6/uL (3.85-5.65); White Blood Count 14.43 10^3/uL (3.29-11.43)
[2025-06-16] MEDS: PRENATAL VIT NO.130/IRON/FOLIC 1 EACH TABLET PO (08:50)
== END 2025-06-16 21:04 | disposition home or self-care (01) | DRG 807 ==
LOC: OPOB 10:16 → OBGYN 10:16
PROVIDERS: Admitting Provider Family Medicine; PCP Family Medicine; Visit Provider Family Medicine
DX: O36.1930 Maternal care for other isoimmunization, third trimester, not applicable or unspecified (principal); Z37.0 Single live birth; Z3A.39 39 weeks gestation of pregnancy
CPT/HCPCS: 36415; 59025; 59409; 85025; 85027; 86850; 86870; 86900; 96374; 96376; 99211; J2590; J3010; J7121; J9999